=== PATIENT | female | born 1980 | race Caucasian/White ===

== ENCOUNTER → 2021-08-27 | Outpatient (CLI) | payer OTHER, MEDICAID | END | disposition left against medical advice (07) | LOC: EMS 02:53 | DX: R51.9 Headache, unspecified (principal); M54.2 Cervicalgia; M25.539 Pain in unspecified wrist; Y04.8XXA Assault by other bodily force, initial encounter ==

== ENCOUNTER 2022-11-10 10:44 | Outpatient (CLI) | payer OTHER, MEDICAID | END 2022-11-10 10:45 | disposition EMS.NT | LOC: EMS 10:44 | DX: S50.872A Other superficial bite of left forearm, initial encounter (principal); S70.372A Other superficial bite of left thigh, initial encounter; W54.0XXA Bitten by dog, initial encounter ==

== ENCOUNTER 2023-05-05 13:58 | Outpatient (CLI) | payer MEDICAID ==
[2023-05-05 20:29] LABS: BASOPHILS % (AUTO) 0.4 %; HCT - HEMATOCRIT 41.7 % (37.0-47.0); HGB - HEMOGLOBIN 13.7 g/dL (12.0-16.0); LYMPHOCYTES % (AUTO) 14.9 %; MEAN CORPUSCULAR HEMOGLOBIN 31.5 pg (27.0-31.0); MEAN CORPUSCULAR HGB CONC 32.9 g/dL (32.0-36.0); MEAN CORPUSCULAR VOLUME 95.9 fL (81.0-99.0); MEAN PLATELET VOLUME 10.7 fL (7.9-10.8); MONOCYTES # (AUTO) 0.7 10^3/uL (0.0-1.0); NEUTROPHILS # (AUTO) 5.2 10^3/uL (1.5-6.6); NEUTROPHILS % (AUTO) 74.4 %; PLT - PLATELET COUNT 325 10^3/uL (130-450); RED BLOOD COUNT 4.35 10^6/uL (4.20-5.40); RED CELL DISTRIBUTION WIDTH 12.3 % (12.0-15.0)
[2023-05-05 20:50] LABS: ALBUMIN 4.3 g/dL (3.2-5.5); ALBUMIN/GLOBULIN RATIO 1.9 (1.0-2.2); ALKALINE PHOSPHATASE 57 IU/L (42-121); ALT ALANINE AMINOTRANSFERASE 20 IU/L (10-60); AST ASPARTATE AMINOTRANSFERASE 18 IU/L (10-42); BILIRUBIN,TOTAL 0.4 mg/dL (0.2-1.0); BUN - BLOOD UREA NITROGEN 16 mg/dL (6-20); CALCIUM 9.3 mg/dL (8.5-10.3); CARBON DIOXIDE - CO2 31 mmol/L (21-32); CHLORIDE 101 mmol/L (101-111); CHOL/HDL RATIO 2.8 (<4.4); CHOLESTEROL 181 mg/dL; CREATININE 0.5 mg/dL (0.6-1.3); GFR - MDRD 135 (>89); GLUCOSE 93 mg/dL (74-104); HDL CHOLESTEROL 64 mg/dL; LDL CHOLESTEROL,CALCULATED 66 mg/dL; SODIUM 136 mmol/L (135-145); TOTAL PROTEIN 6.6 g/dL (6.4-8.9); TRIGLYCERIDES 256 mg/dL (48-352); VLDL CHOLESTEROL 51 mg/dL
[2023-05-05 21:05] LABS: THYROID STIMULATING HORMONE 0.53 uIU/mL (0.34-5.60)
== END 2023-05-05 13:59 | disposition home or self-care (01) ==
LOC: LAB.S 13:58
PROVIDERS: ATTEND Nurse Practitioner
DX: R53.83 Other fatigue (principal); Z13.220 Encounter for screening for lipoid disorders; F41.9 Anxiety disorder, unspecified; F32.A Depression, unspecified
CPT/HCPCS: 36415; 80053; 80061; 83721; 84443; 85025

== ENCOUNTER 2023-05-07 12:22 | Outpatient (CLI) | payer MEDICAID ==
[2023-05-07 14:38] LABS: HCT - HEMATOCRIT 41.6 % (37.0-47.0); HGB - HEMOGLOBIN 13.6 g/dL (12.0-16.0); MEAN CORPUSCULAR HEMOGLOBIN 31.1 pg (27.0-31.0); MEAN CORPUSCULAR HGB CONC 32.7 g/dL (32.0-36.0); MEAN CORPUSCULAR VOLUME 95.2 fL (81.0-99.0); MEAN PLATELET VOLUME 10.4 fL (7.9-10.8); RED BLOOD COUNT 4.37 10^6/uL (4.20-5.40); RED CELL DISTRIBUTION WIDTH 12.3 % (12.0-15.0); WHITE BLOOD COUNT 5.8 x10^3/uL (4.8-10.8)
[2023-05-07 15:34] LABS: CRP - C-REACTIVE PROTEIN < 0.5 mg/dL (<0.5); RHEUMATOID FACTOR NEGATIVE (Negative); URIC ACID 5.2 mg/dL (2.3-6.6)
[2023-05-08 19:07] LABS: ANTI-DNA (DS) AB QN 1 IU/mL (0-9)
[2023-05-11 18:08] LABS: ANTINUCLEAR ANTIBODIES IFA Negative (.)
== END 2023-05-07 12:23 | disposition home or self-care (01) ==
LOC: LAB.S 12:22
PROVIDERS: ATTEND Physician Assistant Medical
DX: M05.9 Rheumatoid arthritis with rheumatoid factor, unspecified (principal); I73.00 Raynaud's syndrome without gangrene
CPT/HCPCS: 36415; 84550; 85025; 85027; 85651; 86038; 86140; 86200; 86225; 86430

== ENCOUNTER 2023-08-19 11:58 | Outpatient (CLI) | payer MEDICAID ==
--- NOTE | 2023-08-19 20:03 | XRAY Report ---
PROCEDURE: Finger(s) LT INDICATIONS: THUMB PAIN, LEFT TECHNIQUE: AP hand, 2 views of the first finger(s) acquired. COMPARISON: None. FINDINGS: Bones: No fractures or dislocations. No suspicious bony lesions. Soft tissues: No suspicious soft tissue calcifications or masses. IMPRESSION: No acute bony abnormality. Reviewed by: Mitch Baker MD on 08/19/2023 8:02 PM PDT Approved by: Mitch Baker MD on 08/19/2023 8:02 PM PDT Station ID: [id number]
== END 2023-08-19 11:59 | disposition home or self-care (01) ==
LOC: DI.N 11:58
PROVIDERS: ATTEND Physician Assistant Medical
DX: M79.645 Pain in left finger(s) (principal)